=== PATIENT | female | born 1995 | race African-American/Black ===

== ENCOUNTER 2019-09-15 10:38 | Emergency (ER) | payer OTHER ==
[~2019-09-15] VITALS: Ht 154.9 cm; Wt 49.2 kg
[~2019-09-15 10:38] MED LIST: HYDR-4011 PO
[2019-09-15 10:40] VITALS: BP 133/87; PULSE 112; RESP 28; Ht 154.9 cm; Wt 49.2 kg
== END 2019-09-15 11:54 | disposition home or self-care (01) ==
LOC: FTE 10:38
DX: K08.89 Other specified disorders of teeth and supporting structures (principal); J45.909 Unspecified asthma, uncomplicated; F17.210 Nicotine dependence, cigarettes, uncomplicated
CPT/HCPCS: 99283